=== PATIENT | male | born 1995 | race Asian ===

== ENCOUNTER 2022-10-14 16:50 | Emergency (ER) | payer OTHER, BC ==
[~2022-10-14] VITALS: Ht 182.9 cm; Wt 80.3 kg
[2022-10-14 17:00] VITALS: BP 159/111; PULSE 87; RESP 20; TEMP 98; O2SAT 100
--- NOTE | 2022-10-14 17:27 | NUR ---
PT AMBULATED TO BED 04
--- NOTE | 2022-10-14 18:30 | NUR ---
PT HAS BEEN SEEN BY PROVIDER.
[2022-10-14 18:39] VITALS: PULSE 87
--- NOTE | 2022-10-14 18:42 | NUR ---
27 Y/O MALE PATIENT PRESENTS TO ED WITH COMPLAINES OF RIGHT HIP PAIN. PT HAD METAL DOOR LAND ON HIS RIGHT HIP. PT LANDED ON HIS SHOUULDER TO BREAK FALL. DENIES ANY NUMBNESS AND TINGLING ANY LOSS OF SENSATION; PT HAS HAD SHARP PAIN. SKIN IS PINK/WARM/DRY; AAOX4 WITH EVEN AND STEADY GAIT; LUNGS CLEAR BL; HR EVEN AND REGULAR; PT DENIES ANY FEVER, CP, SOB, OR COUGH AT THIS TIME; PATIENT STATES PAIN OF 6/10 AT THIS TIME; VSS; PATIENT POSITIONED FOR COMFORT; HOB ELEVATED; BEDRAILS UP X2; BED DOWN. CALL LIGHT WITH IN REACH, ER MADE AWARE OF PT STATUS. NPMX DIAMANTE
[2022-10-14 18:47] VITALS: O2SAT 100
[2022-10-14] MEDS ORDERED: IBUP-1842 PO (18:52)
[2022-10-14 18:57] VITALS: BP 117/66; RESP 20; TEMP 98.1; O2SAT 87
--- NOTE | 2022-10-14 19:04 | NUR ---
Patient discharged with v/s stable. Written and verbal after care instructions given and explained. Patient verbalized understanding. Ambulatory with steady gait. All questions addressed prior to discharge. Advised to follow up with PMD.
--- NOTE | 2022-10-14 19:18 | NUR ---
The patient's care was reviewed and supervised by Kailee Douglas RN, RN.
== END 2022-10-14 19:04 | disposition home or self-care (01) ==
LOC: MED 16:50
DX: S46.912A Strain of unspecified muscle, fascia and tendon at shoulder and upper arm level, left arm, initial encounter (principal); S70.01XA Contusion of right hip, initial encounter; Z79.1 Long term (current) use of non-steroidal anti-inflammatories (NSAID); W20.8XXA Other cause of strike by thrown, projected or falling object, initial encounter; Y93.89 Activity, other specified; Y92.89 Other specified places as the place of occurrence of the external cause; Y99.0 Civilian activity done for income or pay
CPT/HCPCS: 73502; 99283